=== PATIENT | female | born 1945 | race Caucasian/White ===

== ENCOUNTER → 2020-10-04 | Outpatient (CLI) | payer MEDICARE ==
[~2020-10-04] MED LIST: ALLOPURINOL300 MG PO; ASPIRIN EC81 MG PO; BYSTOLIC10 MG PO; CARNITINE PO; GABAPENTIN300 MG PO; LEVAQUIN500 MG PO; LOSARTAN POTAS100 MG PO; LYRICA25 MG PO; MAGNESIUM OXID400 MG PO; METOPROLOL SUCC50 MG PO; PREDNISONE10 MG PO; TIZANIDINE HCL4 MG PO
== END ==
LOC: MAMMO 09:11
PROVIDERS: ATTEND Internal Medicine
DX: Z12.31 Encounter for screening mammogram for malignant neoplasm of breast (principal)
CPT/HCPCS: 77067

== ENCOUNTER 2021-07-25 07:48 | Inpatient (IN) | payer MEDICARE, OTHER ==
[~2021-07-25] VITALS: Ht 152.4 cm; Wt 68.0 kg
[2021-07-25] VITALS (7 sets, daily range): BP systolic 124–192; BP diastolic 65–84
[2021-07-25] MEDS ORDERED: HYDRALAZINE HCL 20 MG/ML VIAL IV STA (08:02)
[2021-07-25] MEDS ORDERED: SODIUM CHLORIDE 0.9% 1000ML 1,000 ML IV STA ×2 (08:12→11:16)
[2021-07-25 08:46] LABS: BASOPHILS # (AUTO) 0.1 (0.0-0.1); EOSINOPHILS # (AUTO) 0.3 (0.0-0.4); EOSINOPHILS % 2.4 % (0.0-6.0); HEMATOCRIT 40.8 % (34.2-44.1); HEMOGLOBIN 12.7 g/dL (12.0-16.0); LYMPHOCYTES # (AUTO) 1.9 (1.0-3.2); LYMPHOCYTES % 15.3 % (18.0-39.1); MEAN CORPUSCULAR HEMOGLOBIN 32.2 pg (28-32); MEAN CORPUSCULAR HGB CONC 31.1 g/dL (31-35); MEAN CORPUSCULAR VOLUME 103.3 fL (81-99); MONOCYTES % 7.9 % (4.4-11.3); NEUTROPHILS # (AUTO) 9.1 (2.1-6.9); NEUTROPHILS % 72.8 % (38.7-80.0); PLATELET COUNT 340 x10e3/uL (140-360); RED BLOOD COUNT 3.95 x10e6/uL (3.6-5.1); RED CELL DISTRIBUTION WIDTH 14.5 % (11.7-14.4)
[2021-07-25 09:08] LABS: ALBUMIN 3.8 g/dL (3.5-5.0); ALBUMIN/GLOBULIN RATIO 0.9 (0.8-2.0); ANION GAP 16.2 mmol/L (8-16); CREATININE, SERUM 3.33 mg/dL (0.57-1.11); POTASSIUM 5.2 mmol/L (3.5-5.1)
[2021-07-25 09:10] LABS: CALCIUM 14.8 mg/dL (8.4-10.2)
[2021-07-25 09:21] LABS: CLARITY,URINE CLEAR (CLEAR); COLOR,URINE YELLOW (YELLOW); KETONES,URINE NEGATIVE (NEGATIVE); LEUKOCYTE ESTERASE ,URINE SMALL (NEGATIVE); NITRITE,URINE NEGATIVE (NEGATIVE); PROTEIN,URINE DIPSTICK 1+ (NEGATIVE); URINE UROBILINOGEN 0.2 mg/dL (0.2 - 1)
[2021-07-25 09:28] LABS: BACTERIA,URINE MANY /HPF; EPITHELIAL CELLS,URINE RARE /LPF; RBC,URINE 0-5 /HPF (0-5); WBC,URINE (MAN) 21-50 /HPF (0-5)
[2021-07-25] MEDS ORDERED: SODIUM CHLORIDE 0.9% 1000ML 1,000 ML IV SCH (11:30)
[2021-07-25] MEDS ORDERED: PAMIDRONATE DISODIUM 60 MG in SODIUM CHLORIDE 0.9% 1000ML 1,000 ML IV ONE (12:00)
[2021-07-25] MEDS ORDERED: ASPIRIN81 MG PO (15:00)
[2021-07-25] MEDS ORDERED: ATORVASTATIN CA10 MG PO (15:00)
[2021-07-25] MEDS ORDERED: CHLORDIAZEPOXIDE HCL 25 MG CAP PO PRN (15:00)
[2021-07-25] MEDS ORDERED: CARVEDILOL25 MG PO (15:00)
[2021-07-25] MEDS ORDERED: HYDRALAZINE HCL50 MG PO (15:00)
[2021-07-25] MEDS ORDERED: CLONIDINE HCL0.1 MG PO (15:00)
[2021-07-25] MEDS ORDERED: SODIUM CHLORIDE 0.9% 1000ML 1,000 ML IV PRN (15:30)
[2021-07-25 15:42] LABS: CREATININE,URINE RANDOM 78.5 mg/dL (47-110); TOTAL PROTEIN, URINE 38.5 mg/dL (1-14)
[2021-07-25] MEDS: LABETALOL HCL 100 MG TAB PO SCH ×2 (15:49→21:38)
[2021-07-25] MEDS ORDERED: MULTIVITAMINS- 12 INJECTION 10 ML, THIAMINE HCL INJ 100 MG, FOLIC ACID MDV 1 MG in SODI... IV SCH (17:00)
[2021-07-25] MEDS ORDERED: LABETALOL HCL 100 MG TAB PO SCH (17:00)
[2021-07-26] VITALS (7 sets, daily range): BP systolic 153–205; BP diastolic 74–101
[2021-07-26 02:33] LABS: ANION GAP 13.4 mmol/L (8-16); CREATININE, SERUM 2.96 mg/dL (0.57-1.11); POTASSIUM 4.4 mmol/L (3.5-5.1)
[2021-07-26] MEDS ORDERED: HYDRALAZINE HCL 20 MG/ML VIAL IV PRN (04:15)
[2021-07-26] MEDS: MULTIVITAMINS- 12 INJECTION 10 ML, THIAMINE HCL INJ 100 MG, FOLIC ACID MDV 1 MG in SODI... IV SCH (04:30)
[2021-07-26] MEDS: LABETALOL HCL 100 MG TAB PO SCH ×4 (04:31→20:50)
[2021-07-26] MEDS ORDERED: LOPERAMIDE HCL 2 MG CAP PO PRN (04:45)
[2021-07-26 06:29] LABS: BASOPHILS # (AUTO) 0.1 (0.0-0.1); BASOPHILS % 0.6 % (0.0-1.0); EOSINOPHILS # (AUTO) 0.2 (0.0-0.4); EOSINOPHILS % 2.4 % (0.0-6.0); HEMATOCRIT 33.1 % (34.2-44.1); HEMOGLOBIN 10.4 g/dL (12.0-16.0); LYMPHOCYTES # (AUTO) 1.4 (1.0-3.2); LYMPHOCYTES % 14.4 % (18.0-39.1); MEAN CORPUSCULAR HEMOGLOBIN 32.5 pg (28-32); MEAN CORPUSCULAR HGB CONC 31.4 g/dL (31-35); MEAN CORPUSCULAR VOLUME 103.4 fL (81-99); MONOCYTES # (AUTO) 0.7 (0.2-0.8); MONOCYTES % 7.3 % (4.4-11.3); NEUTROPHILS # (AUTO) 7.2 (2.1-6.9); NEUTROPHILS % 74.9 % (38.7-80.0); PLATELET COUNT 270 x10e3/uL (140-360); RED CELL DISTRIBUTION WIDTH 14.6 % (11.7-14.4)
[2021-07-26 07:00] LABS: ALBUMIN 2.9 g/dL (3.5-5.0); CALCIUM 10.6 mg/dL (8.4-10.2); CREATININE, SERUM 2.82 mg/dL (0.57-1.11); MAGNESIUM 1.2 MG/DL (1.3-2.1); PHOSPHORUS 2.1 MG/DL (2.3-4.7)
[2021-07-26] MEDS ORDERED: SODIUM CHLORIDE 0.9% 250ML 250 ML ONE (07:59)
[2021-07-26] MEDS: CEFTRIAXONE 1 GM in SODIUM CHLORIDE 0.9% 50ML 50 ML IV SCH (09:30)
[2021-07-26] MEDS ORDERED: SODIUM CHLORIDE 0.9% IV ONE (17:00)
[2021-07-26] MEDS ORDERED: PAMIDRONATE DISODIUM IV ONE (17:00)
[2021-07-27] VITALS (8 sets, daily range): BP systolic 149–200; BP diastolic 76–90
[2021-07-27] MEDS: MULTIVITAMINS- 12 INJECTION 10 ML, THIAMINE HCL INJ 100 MG, FOLIC ACID MDV 1 MG in SODI... IV SCH (02:30)
[2021-07-27] MEDS: LABETALOL HCL 100 MG TAB PO SCH ×4 (04:00→21:36)
[2021-07-27] MEDS ORDERED: MAGNESIUM SULFATE 2GM/50ML 50 ML IV ONE (04:00)
[2021-07-27 06:11] LABS: ALBUMIN 2.8 g/dL (3.5-5.0); ALBUMIN/GLOBULIN RATIO 0.9 (0.8-2.0); ANION GAP 9.7 mmol/L (8-16); CREATININE, SERUM 2.36 mg/dL (0.57-1.11); POTASSIUM 3.7 mmol/L (3.5-5.1)
[2021-07-27 06:13] LABS: BASOPHILS # (AUTO) 0.1 (0.0-0.1); BASOPHILS % 1.1 % (0.0-1.0); EOSINOPHILS # (AUTO) 0.2 (0.0-0.4); EOSINOPHILS % 2.7 % (0.0-6.0); HEMATOCRIT 32.8 % (34.2-44.1); HEMOGLOBIN 10.2 g/dL (12.0-16.0); LYMPHOCYTES # (AUTO) 1.2 (1.0-3.2); LYMPHOCYTES % 16.4 % (18.0-39.1); MEAN CORPUSCULAR HEMOGLOBIN 32.2 pg (28-32); MEAN CORPUSCULAR HGB CONC 31.1 g/dL (31-35); MEAN CORPUSCULAR VOLUME 103.5 fL (81-99); MONOCYTES # (AUTO) 0.7 (0.2-0.8); MONOCYTES % 10.1 % (4.4-11.3); NEUTROPHILS # (AUTO) 4.9 (2.1-6.9); NEUTROPHILS % 69.3 % (38.7-80.0); PLATELET COUNT 246 x10e3/uL (140-360); RED BLOOD COUNT 3.17 x10e6/uL (3.6-5.1); RED CELL DISTRIBUTION WIDTH 14.4 % (11.7-14.4)
[2021-07-27] MEDS ORDERED: ACETAMINOPHEN 325 MG TAB PO PRN (08:45)
[2021-07-27] MEDS: CEFTRIAXONE 1 GM in SODIUM CHLORIDE 0.9% 50ML 50 ML IV SCH (08:47)
[2021-07-27] MEDS ORDERED: AMLODIPINE BESYLATE 5 MG TAB PO SCH (09:00)
[2021-07-27] MEDS ORDERED: POTASSIUM CHLORIDE 20 MEQ TAB CR PO ONE (09:30)
[2021-07-27 14:13] LABS: ALPHA 2 GLOBULIN URINE PEP 4.7 % (.)
[2021-07-28] VITALS (7 sets, daily range): BP systolic 147–186; BP diastolic 66–85
[2021-07-28] MEDS: MULTIVITAMINS- 12 INJECTION 10 ML, THIAMINE HCL INJ 100 MG, FOLIC ACID MDV 1 MG in SODI... IV SCH (00:28)
[2021-07-28] MEDS: LABETALOL HCL 100 MG TAB PO SCH ×4 (04:06→22:41)
[2021-07-28] MEDS ORDERED: ZOLPIDEM TARTRATE 10 MG TAB PO PRN (05:45)
[2021-07-28 06:13] LABS: BASOPHILS # (AUTO) 0.1 (0.0-0.1); BASOPHILS % 0.8 % (0.0-1.0); EOSINOPHILS # (AUTO) 0.3 (0.0-0.4); EOSINOPHILS % 3.6 % (0.0-6.0); HEMOGLOBIN 10.4 g/dL (12.0-16.0); LYMPHOCYTES # (AUTO) 1.4 (1.0-3.2); LYMPHOCYTES % 17.6 % (18.0-39.1); MEAN CORPUSCULAR HEMOGLOBIN 32.7 pg (28-32); MEAN CORPUSCULAR HGB CONC 31.5 g/dL (31-35); MEAN CORPUSCULAR VOLUME 103.8 fL (81-99); MONOCYTES # (AUTO) 0.8 (0.2-0.8); MONOCYTES % 10.7 % (4.4-11.3); NEUTROPHILS # (AUTO) 5.3 (2.1-6.9); NEUTROPHILS % 66.9 % (38.7-80.0); PLATELET COUNT 260 x10e3/uL (140-360); RED BLOOD COUNT 3.18 x10e6/uL (3.6-5.1); RED CELL DISTRIBUTION WIDTH 14.5 % (11.7-14.4)
[2021-07-28 06:33] LABS: ALBUMIN 2.8 g/dL (3.5-5.0); ALBUMIN/GLOBULIN RATIO 0.8 (0.8-2.0); ANION GAP 12.5 mmol/L (8-16); CALCIUM 8.4 mg/dL (8.4-10.2); CREATININE, SERUM 2.25 mg/dL (0.57-1.11); POTASSIUM 3.5 mmol/L (3.5-5.1)
[2021-07-28] MEDS: CEFTRIAXONE 1 GM in SODIUM CHLORIDE 0.9% 50ML 50 ML IV SCH (09:40)
[2021-07-28] MEDS: AMLODIPINE BESYLATE 5 MG TAB PO SCH (09:41)
[2021-07-29] VITALS: BP 161/81
[2021-07-29 04:00] VITALS: BP_SYST 126; BP_SYST 147; BP_DIAS 76; BP_DIAS 78
[2021-07-29] MEDS: LABETALOL HCL 100 MG TAB PO SCH (04:00)
[2021-07-29 07:27] LABS: ALBUMIN 2.9 g/dL (3.5-5.0); ALBUMIN/GLOBULIN RATIO 0.8 (0.8-2.0); ANION GAP 12.6 mmol/L (8-16); CALCIUM 8.6 mg/dL (8.4-10.2); CREATININE, SERUM 2.3 mg/dL (0.57-1.11); POTASSIUM 3.6 mmol/L (3.5-5.1)
[2021-07-29 07:49] VITALS: BP 148/78
[2021-07-29 08:30] VITALS: BP 148/78
[2021-07-29] MEDS ORDERED: THIAMINE HCL 100 MG TAB PO SCH (09:00)
[2021-07-29] MEDS ORDERED: FOLIC ACID 1 MG TAB PO SCH (09:00)
[2021-07-29] MEDS: AMLODIPINE BESYLATE 5 MG TAB PO SCH (09:18)
[2021-07-29] MEDS: CEFTRIAXONE 1 GM in SODIUM CHLORIDE 0.9% 50ML 50 ML IV SCH (09:18)
== END 2021-07-29 11:03 | disposition home or self-care (01) | DRG 641 ==
LOC: ER 08:00 → ERHOLD 11:10 → MED/SURG3 13:37
PROVIDERS: ADMIT Internal Medicine; ATTEND Internal Medicine
DX: E83.52 Hypercalcemia (principal); N17.9 Acute kidney failure, unspecified; N39.0 Urinary tract infection, site not specified; M84.475A Pathological fracture, left foot, initial encounter for fracture; I12.9 Hypertensive chronic kidney disease with stage 1 through stage 4 chronic kidney disease, or unspecified chronic kidney disease; E87.5 Hyperkalemia; E77.8 Other disorders of glycoprotein metabolism; D63.8 Anemia in other chronic diseases classified elsewhere; N18.32 Chronic kidney disease, stage 3b; R77.1 Abnormality of globulin; D47.2 Monoclonal gammopathy; M47.896 Other spondylosis, lumbar region; M47.892 Other spondylosis, cervical region; M47.894 Other spondylosis, thoracic region
CPT/HCPCS: 36415; 70450; 74176; 76770; 77075; 80048; 80053; 81001; 82570; 82784; 82977; 83735; 83970; 84100; 84156; 84165; 84166; 84300; 84550; 85025; 85651; 93005; 96361; 99251; 99284; J0360; J0696; J2430; J3411; J3475; J7030; J7050; U0002

== ENCOUNTER 2021-08-10 11:06 | Inpatient (IN) | payer MEDICARE, OTHER ==
[~2021-08-10] VITALS: Ht 154.9 cm; Wt 68.0 kg
[~2021-08-10 11:06] MED LIST changes: +ASPIRIN81 MG PO; +ATORVASTATIN CA10 MG PO; +CARVEDILOL25 MG PO; +CLONIDINE HCL0.1 MG PO; +HYDRALAZINE HCL50 MG PO
[2021-08-10 11:30] LABS: BASOPHILS # (AUTO) 0.2 (0.0-0.1); BASOPHILS % 1.1 % (0.0-1.0); EOSINOPHILS # (AUTO) 0.4 (0.0-0.4); EOSINOPHILS % 2.6 % (0.0-6.0); HEMATOCRIT 37.7 % (34.2-44.1); HEMOGLOBIN 11.8 g/dL (12.0-16.0); LYMPHOCYTES % 14.8 % (18.0-39.1); MEAN CORPUSCULAR HEMOGLOBIN 32.2 pg (28-32); MEAN CORPUSCULAR HGB CONC 31.3 g/dL (31-35); MEAN CORPUSCULAR VOLUME 102.7 fL (81-99); MONOCYTES # (AUTO) 1.2 (0.2-0.8); MONOCYTES % 8.5 % (4.4-11.3); NEUTROPHILS % 72.3 % (38.7-80.0); PLATELET COUNT 445 x10e3/uL (140-360); RED BLOOD COUNT 3.67 x10e6/uL (3.6-5.1); RED CELL DISTRIBUTION WIDTH 14.5 % (11.7-14.4)
[2021-08-10] MEDS ORDERED: SODIUM CHLORIDE 0.9% 1000ML 1,000 ML IV STA (11:56)
[2021-08-10 12:03] LABS: INR 1.02; PROTHROMBIN TIME 14.3 seconds (11.9-14.5)
[2021-08-10 12:04] LABS: PARTIAL THROMBOPLASTIN TIME 25.2 seconds (23.8-35.5)
[2021-08-10 12:10] LABS: ALBUMIN 3.5 g/dL (3.5-5.0); ALBUMIN/GLOBULIN RATIO 0.8 (0.8-2.0); ANION GAP 17.8 mmol/L (8-16); CALCIUM 7.6 mg/dL (8.4-10.2); CREATININE, SERUM 2.64 mg/dL (0.57-1.11); POTASSIUM 3.8 mmol/L (3.5-5.1)
[2021-08-10 12:18] LABS: CREATINE KINASE MB 3.3 ng/mL (0-5.0)
[2021-08-10 14:03] LABS: CLARITY,URINE CLEAR (CLEAR); COLOR,URINE YELLOW (YELLOW)
[2021-08-10 14:04] LABS: KETONES,URINE NEGATIVE (NEGATIVE); LEUKOCYTE ESTERASE ,URINE NEGATIVE (NEGATIVE); NITRITE,URINE NEGATIVE (NEGATIVE); PROTEIN,URINE DIPSTICK 1+ (NEGATIVE); URINE UROBILINOGEN 0.2 mg/dL (0.2 - 1)
[2021-08-10] MEDS: SODIUM CHLORIDE 0.9% 1000ML 1,000 ML IV SCH ×2 (14:48→20:14)
[2021-08-10 15:42] VITALS: BP 157/73
[2021-08-10 19:51] VITALS: BP 144/62
[2021-08-10 20:00] VITALS: BP 144/62
[2021-08-10] MEDS ORDERED: AMLODIPINE BESY10 MG PO (23:02)
[2021-08-10 23:59] VITALS: BP 149/66
[2021-08-11] MEDS ORDERED: HYDROCODONE/APAP 5MG-325MG TAB PO PRN (04:30)
[2021-08-11 04:46] VITALS: BP 148/59
[2021-08-11 06:15] LABS: BASOPHILS # (AUTO) 0.1 (0.0-0.1); BASOPHILS % 1.3 % (0.0-1.0); EOSINOPHILS # (AUTO) 0.3 (0.0-0.4); EOSINOPHILS % 3.6 % (0.0-6.0); HEMATOCRIT 33.1 % (34.2-44.1); HEMOGLOBIN 10.2 g/dL (12.0-16.0); LYMPHOCYTES # (AUTO) 1.4 (1.0-3.2); LYMPHOCYTES % 15.7 % (18.0-39.1); MEAN CORPUSCULAR HEMOGLOBIN 31.9 pg (28-32); MEAN CORPUSCULAR HGB CONC 30.8 g/dL (31-35); MEAN CORPUSCULAR VOLUME 103.4 fL (81-99); MONOCYTES # (AUTO) 0.8 (0.2-0.8); MONOCYTES % 8.3 % (4.4-11.3); NEUTROPHILS # (AUTO) 6.4 (2.1-6.9); NEUTROPHILS % 70.5 % (38.7-80.0); PLATELET COUNT 321 x10e3/uL (140-360); RED CELL DISTRIBUTION WIDTH 14.2 % (11.7-14.4)
[2021-08-11 06:36] LABS: ANION GAP 12.2 mmol/L (8-16); CREATININE, SERUM 2.23 mg/dL (0.57-1.11); POTASSIUM 3.2 mmol/L (3.5-5.1)
[2021-08-11 06:38] LABS: CALCIUM 6.8 mg/dL (8.4-10.2)
[2021-08-11 08:01] VITALS: BP 110/42
[2021-08-11] MEDS: AMLODIPINE BESYLATE 10 MG TAB PO SCH (08:39)
[2021-08-11] MEDS: ALLOPURINOL 100 MG TAB PO SCH (08:39)
[2021-08-11] MEDS: ASPIRIN 81 MG CHEW TAB PO SCH (08:39)
[2021-08-11] MEDS ORDERED: POTASSIUM CHLORIDE 20 MEQ TAB CR PO ONE (08:45)
[2021-08-11] MEDS: SODIUM CHLORIDE 0.9% 1000ML 1,000 ML IV SCH (08:48)
[2021-08-11 11:26] VITALS: BP 122/64
[2021-08-11 15:30] VITALS: BP 120/55
[2021-08-11 20:00] VITALS: BP 136/64
[2021-08-11] MEDS: ATORVASTATIN 10 MG TAB PO SCH (20:29)
[2021-08-12] MEDS: SODIUM CHLORIDE 0.9% 1000ML 1,000 ML IV SCH (03:59)
[2021-08-12 07:44] VITALS: BP 141/63
[2021-08-12 08:33] LABS: BASOPHILS # (AUTO) 0.1 (0.0-0.1); BASOPHILS % 1.5 % (0.0-1.0); EOSINOPHILS # (AUTO) 0.4 (0.0-0.4); EOSINOPHILS % 4.2 % (0.0-6.0); HEMATOCRIT 37.2 % (34.2-44.1); HEMOGLOBIN 11.4 g/dL (12.0-16.0); LYMPHOCYTES # (AUTO) 1.6 (1.0-3.2); LYMPHOCYTES % 17.5 % (18.0-39.1); MEAN CORPUSCULAR HEMOGLOBIN 31.9 pg (28-32); MEAN CORPUSCULAR HGB CONC 30.6 g/dL (31-35); MEAN CORPUSCULAR VOLUME 104.2 fL (81-99); MONOCYTES # (AUTO) 0.8 (0.2-0.8); MONOCYTES % 8.4 % (4.4-11.3); NEUTROPHILS # (AUTO) 6.4 (2.1-6.9); NEUTROPHILS % 67.9 % (38.7-80.0); PLATELET COUNT 332 x10e3/uL (140-360); RED BLOOD COUNT 3.57 x10e6/uL (3.6-5.1); RED CELL DISTRIBUTION WIDTH 14.3 % (11.7-14.4)
[2021-08-12] MEDS: ALLOPURINOL 100 MG TAB PO SCH (08:49)
[2021-08-12] MEDS: ASPIRIN 81 MG CHEW TAB PO SCH (08:49)
[2021-08-12] MEDS: AMLODIPINE BESYLATE 10 MG TAB PO SCH (08:50)
[2021-08-12 08:56] LABS: ALBUMIN 2.9 g/dL (3.5-5.0); ALBUMIN/GLOBULIN RATIO 0.7 (0.8-2.0); ANION GAP 12.8 mmol/L (8-16); CREATININE, SERUM 2.03 mg/dL (0.57-1.11); MAGNESIUM 1.4 MG/DL (1.3-2.1); POTASSIUM 3.8 mmol/L (3.5-5.1)
[2021-08-12] MEDS ORDERED: MAGNESIUM SULF 1GRAM/DEXTROSE 100 ML IV ONE (10:30)
[2021-08-12 11:28] VITALS: BP 126/52
[2021-08-12] MEDS: CALCIUM CARBONATE 500 MG CHEWABLE TABS PO SCH ×2 (12:24→16:26)
[2021-08-12] MEDS ORDERED: POTASSIUM PHOSPHATE 10 MM in SODIUM CHLORIDE 0.9% 250ML 250 ML IV ONE (12:45)
[2021-08-12 15:36] VITALS: BP 129/59
[2021-08-12 20:00] VITALS: BP 152/66
[2021-08-12] MEDS: ATORVASTATIN 10 MG TAB PO SCH (20:35)
[2021-08-13] VITALS (9 sets, daily range): BP systolic 126–152; BP diastolic 60–73
[2021-08-13] MEDS: SODIUM CHLORIDE 0.9% 1000ML 1,000 ML IV SCH ×2 (00:48→02:30)
[2021-08-13 06:18] LABS: CREATININE, SERUM 2.11 mg/dL (0.57-1.11)
[2021-08-13 06:23] LABS: CALCIUM 6.9 mg/dL (8.4-10.2)
[2021-08-13] MEDS ORDERED: CALCIUM GLUC 1 G/50 ML NACL 50 ML IV ONE (06:30)
[2021-08-13 06:52] LABS: MAGNESIUM 1.7 MG/DL (1.3-2.1); PHOSPHORUS 1.6 MG/DL (2.3-4.7)
[2021-08-13] MEDS: AMLODIPINE BESYLATE 10 MG TAB PO SCH (08:24)
[2021-08-13] MEDS: ASPIRIN 81 MG CHEW TAB PO SCH (08:24)
[2021-08-13] MEDS: ALLOPURINOL 100 MG TAB PO SCH (08:25)
[2021-08-13] MEDS ORDERED: POTASSIUM CHLORIDE 20 MEQ TAB CR PO STA (08:27)
[2021-08-13] MEDS: CALCIUM CARBONATE 500 MG CHEWABLE TABS PO SCH ×2 (11:45→16:40)
[2021-08-13] MEDS: ATORVASTATIN 10 MG TAB PO SCH (21:34)
[2021-08-14] VITALS (8 sets, daily range): BP systolic 139–146; BP diastolic 64–77
[2021-08-14 05:44] LABS: ALBUMIN 2.7 g/dL (3.5-5.0); ALBUMIN/GLOBULIN RATIO 0.7 (0.8-2.0); ANION GAP 12.4 mmol/L (8-16); CALCIUM 7.5 mg/dL (8.4-10.2); CREATININE, SERUM 1.94 mg/dL (0.57-1.11); MAGNESIUM 1.7 MG/DL (1.3-2.1); PHOSPHORUS 1.9 MG/DL (2.3-4.7); POTASSIUM 4.4 mmol/L (3.5-5.1)
[2021-08-14] MEDS: AMLODIPINE BESYLATE 10 MG TAB PO SCH (08:48)
[2021-08-14] MEDS: ASPIRIN 81 MG CHEW TAB PO SCH (08:48)
[2021-08-14] MEDS: ALLOPURINOL 100 MG TAB PO SCH (08:48)
[2021-08-14] MEDS: PHOSPHORUS 250 MG TAB PO SCH (09:29)
[2021-08-14] MEDS: CALCIUM CARBONATE 500 MG CHEWABLE TABS PO SCH ×2 (12:04→16:21)
[2021-08-14] MEDS: SODIUM CHLORIDE 0.9% 1000ML 1,000 ML IV SCH (16:48)
[2021-08-14] MEDS: ATORVASTATIN 10 MG TAB PO SCH (20:01)
[2021-08-15] VITALS: BP 139/65
[2021-08-15 04:00] VITALS: BP 126/56
[2021-08-15] MEDS ORDERED: CALCIUM CARBON500 MG PO (07:34)
[2021-08-15 07:38] VITALS: BP 128/56
[2021-08-15 07:41] VITALS: BP 128/56
[2021-08-15] MEDS: PHOSPHORUS 250 MG TAB PO SCH (08:17)
[2021-08-15] MEDS: ASPIRIN 81 MG CHEW TAB PO SCH (08:17)
[2021-08-15] MEDS: AMLODIPINE BESYLATE 10 MG TAB PO SCH (08:17)
[2021-08-15] MEDS: ALLOPURINOL 100 MG TAB PO SCH (08:17)
== END 2021-08-15 09:39 | disposition home or self-care (01) | DRG 641 ==
LOC: ER 11:13 → ERHOLD 13:47 → MED/SURG3 15:28 → OBSVTOIN 08-12 15:06
PROVIDERS: ADMIT Internal Medicine; ATTEND Internal Medicine
DX: E83.51 Hypocalcemia (principal); N17.9 Acute kidney failure, unspecified; G40.909 Epilepsy, unspecified, not intractable, without status epilepticus; I12.9 Hypertensive chronic kidney disease with stage 1 through stage 4 chronic kidney disease, or unspecified chronic kidney disease; N18.9 Chronic kidney disease, unspecified; G62.9 Polyneuropathy, unspecified; Z88.8 Allergy status to other drugs, medicaments and biological substances; E83.42 Hypomagnesemia; G93.89 Other specified disorders of brain; E83.39 Other disorders of phosphorus metabolism; Z20.822 Contact with and (suspected) exposure to COVID-19
CPT/HCPCS: 36415; 70450; 70551; 71045; 80048; 80053; 81001; 82550; 82553; 83036; 83605; 83735; 83970; 84100; 84443; 84484; 85025; 85610; 85730; 87040; 87086; 93005; 95812; 96361; 99284; G0378; J0696; J3475; J7030; J7050; U0002